=== PATIENT | male | born 2000 | race African-American/Black ===

== ENCOUNTER 2023-03-10 16:11 | Emergency (ER) | payer OTHER, SELFPAY ==
--- NOTE | ~2023-03-10 | US_ITS ---
EXAMINATION: US SCROTUM CLINICAL INFORMATION: Right-sided pain history of left testicular torsion with left testicle removal. COMPARISON: None available. TECHNIQUE: A sonogram of the scrotum was performed assessing carpio-scale appearance and color Doppler flow. Spectral Doppler analysis of the arterial and venous flow were performed in the testes bilaterally. FINDINGS: RIGHT: Right testicle measures 4.9 x 2.2 x 3.6 cm, volume 19.6 mL. No testicular mass. Limited testicular microlithiasis. Spectral Doppler analysis of the arterial and venous flow is normal in the right testis. Right epididymal head is normal in size. No right hydrocele or varicocele is seen. Right epididymal Doppler flow is mildly increased in the epididymal body and tail however without associated edema, equivocal for epididymitis, recommend correlation with clinical symptoms. LEFT: Left testicle is surgically absent. US/US scrotum IMPRESSION: * Right epididymal Doppler flow is mildly increased in the epididymal body and tail however without associated edema, equivocal for epididymitis, recommend correlation with clinical symptoms. No evidence of right testicular torsion. * Left testicle is surgically absent. * Limited right microlithiasis is present without intratesticular mass or other worrisome findings. In the absence of any other risk factors for testicular cancer (e.g., personal history of testicular cancer, a father or brother with testicular cancer, history of cryptorchidism or maldescent, testicular atrophy, or other risk factors), no further imaging or biochemical follow-up is necessary; all that is recommended is routine monthly testicular self-examination. However, if the patient has risk factors for testicular cancer, referral to a urologist for evaluation and determination of an optimal follow-up strategy is recommended. Reference: lauren Garnica. al. AJR: 206, March 2016.
--- NOTE | ~2023-03-10 | US_ITS ---
EXAMINATION: US SCROTUM CLINICAL INFORMATION: Right-sided pain history of left testicular torsion with left testicle removal. COMPARISON: None available. TECHNIQUE: A sonogram of the scrotum was performed assessing carpio-scale appearance and color Doppler flow. Spectral Doppler analysis of the arterial and venous flow were performed in the testes bilaterally. FINDINGS: RIGHT: Right testicle measures 4.9 x 2.2 x 3.6 cm, volume 19.6 mL. No testicular mass. Limited testicular microlithiasis. Spectral Doppler analysis of the arterial and venous flow is normal in the right testis. Right epididymal head is normal in size. No right hydrocele or varicocele is seen. Right epididymal Doppler flow is mildly increased in the epididymal body and tail however without associated edema, equivocal for epididymitis, recommend correlation with clinical symptoms. LEFT: Left testicle is surgically absent. US/US scrotum doppler IMPRESSION: * Right epididymal Doppler flow is mildly increased in the epididymal body and tail however without associated edema, equivocal for epididymitis, recommend correlation with clinical symptoms. No evidence of right testicular torsion. * Left testicle is surgically absent. * Limited right microlithiasis is present without intratesticular mass or other worrisome findings. In the absence of any other risk factors for testicular cancer (e.g., personal history of testicular cancer, a father or brother with testicular cancer, history of cryptorchidism or maldescent, testicular atrophy, or other risk factors), no further imaging or biochemical follow-up is necessary; all that is recommended is routine monthly testicular self-examination. However, if the patient has risk factors for testicular cancer, referral to a urologist for evaluation and determination of an optimal follow-up strategy is recommended. Reference: lauren Garnica. al. AJR: 206, March 2016.
[2023-03-10 16:29] VITALS: BP 140/70; PULSE 58; RESP 16; TEMP 36.2; O2SAT 100; BMI 27.0
--- NOTE | 2023-03-10 16:29 | ED_ITS ---
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 He describe it as a dull ache in his remaining testicle along with some suprapubic discomfort and sensation of motion sickness. He denied any urinary symptoms such as urinary frequency, urgency, hematuria, difficulty emptying his bladder. No nausea, vomiting, other abdominal pain. He denies any chance of STI, no urethral discharge. He states his testicular pain has completely resolved. MD complaint: testicular pain Onset (ago): hour(s) (7) Location: genitals Radiation: non-radiation Severity: moderate Severity scale (1-10): 7 Quality: aching Pain Consistency: now resolved Relieving factors: none Exacerbating factors: none Associated symptoms: denies other symptoms Treatments prior to arrival: none Related Data Previous Rx's Medication Instructions Recorded doxycycline hyclate 100 mg tablet 100 mg PO BID #14 tabs 03/10/23 Allergies Allergy/AdvReac Type Severity Reaction Status Date / Time No Known Allergies Allergy Verified 03/10/23 16:28 Review of Systems Review of Systems: Yes all other systems are reviewed and are negative [facility] Social History Social History Advance Directives: No Advance Directives Information Provided: No Physical Exam ED Vital Signs: Vital Signs - 24 hr 03/10/23 16:29 Temperature 97.1 F Pulse Rate 58 Respiratory Rate 16 Blood Pressure 140/70 H Pulse Oximetry 100 Oxygen Delivery Method Room Air BMI result Body Mass Index 27.0 VSS Appearance: Alert. Oriented X3. No acute distress. HEENT: normal inspection CVS: Normal heart rate and rhythm. Pulses normal. Respiratory: No respiratory distress. Skin: Skin warm and dry. Normal skin color. Normal skin turgor. No rashes. ABD: Soft, nontender, nondistended, normoactive bowel sounds x4 : Normal inspection the circumcised penis, no urethral discharge, single testicle with epididymal tenderness no noted swelling, no skin changes no genital lesions Extremities: Normal inspection x4 Neuro: Oriented X 3. grossly normal, nonfocal Course Course Course Narrative: RME performed by Deonna Hastings PA-C. Patient is a 22 year old assigned male at presenting to the emergency department with right sided testicular pain. Patient has a history of a torsion on the left side previously. Imaging ordered. Patient placed back in the waiting room pending room availability and results. Medications Administered Discontinued Medications Generic Name Dose Route Start Last Admin Trade Name Mariah PRN Reason Stop Dose Admin Ceftriaxone Sodium 500 mg/ 0 mg 03/10/23 18:41 03/10/23 18:49 Lidocaine HCl 1 ml IM 03/10/23 18:42 1 kit ONCE ONE Administration Doxycycline Monohydrate 100 mg 03/10/23 18:41 03/10/23 18:49 Doxycycline Monohydrate 100 Mg Capsule PO 03/10/23 18:42 100 mg ONCE ONE Administration Medical Decision Making Medical Decision Making MDM Narrative: 22-year-old male with history of left-sided testicular torsion status post testicular removal as a child presents to the ER for evaluation of right-sided testicular pain that started at noon today and has since resolved. No urinary symptoms. Ultrasound reviewed, appears he has epididymitis. He is denying any STI symptoms or concerns. Given his age will empirically treat. CT/ NG sample was sent. Urinalysis still pending. Differential Diagnosis Differential Diagnoses: The differential diagnosis associated with the presentation includes epididymitis, STI, orchitis, unlikely testicular torsion Independent Interpretation I performed an independent interpretation of an: Ultrasound Interpretation: visible flow to the right testicle, agrees radiologist read Radiology Impression Discussion of test interpretation with radiology: I have reviewed the radiologist's reading. Radiologist Impression: ?US/US scrotum doppler IMPRESSION: *? Right epididymal Doppler flow is mildly increased in the epididymal body and tail however without associated edema, equivocal for epididymitis, recommend correlation with clinical symptoms. No evidence of right testicular torsion. *? Left testicle is surgically absent. *? Limited right microlithiasis is present without intratesticular mass or other worrisome findings. In the absence of any other risk factors for testicular cancer (e.g., personal history of testicular cancer, a father or brother with testicular cancer, history of cryptorchidism or maldescent, testicular atrophy, or other risk factors), no further imaging or biochemical follow-up is necessary; all that is recommended is routine monthly testicular self-examination. However, if the patient has risk factors for testicular cancer, referral to a urologist for evaluation and determination of an optimal follow-up strategy is recommended. Prescription Management I considered prescription management with: Antibiotic Discharge Plan Discharge Clinical Impression: Acute epididymitis Patient Disposition: Home, Self-Care Instructions: Epididymitis (ED) Additional Instructions: Take the prescribed antibiotic as directed. Next dose is due tomorrow morning. Complete the entire course. If you tested positive for chlamydia or gonorrhea we will call you and inform you. You were empirically treated for both of these. You may have some ongoing aching in the testicle, this is usually improves with anti-inflammatory such as Aleve, ibuprofen. Recommend following up with your doctor. If you develop new or worsening symptoms call 911 or come back to the ER for further evaluation. Prescriptions: New doxycycline hyclate 100 mg tablet 100 mg PO BID Qty: 14 0RF Referrals: [facility] [Provider Group] (Epididymitis, history of torsion status post left testicular removal as a child)
[2023-03-10] MEDS: Doxycycline Monohydrate 100 MG CAPSULE PO (18:49)
[2023-03-10] MEDS: cefTRIAXone sodium 500 MG, Lidocaine HCl 1 % MPF 1 ML IM (18:49)
--- NOTE | 2023-03-10 18:55 | PC.NURSE ---
pt medicated per DEC - rocephin IM given in left deltoid
[2023-03-10 19:44] LABS: Appearance Urine Clear; Color Urine Yellow; Glucose Urine UA Negative (Negative); Leukocyte Esterase Urine Negative (Negative); Nitrite Urine Negative (Negative); Specific Gravity - Urine <= 1.005 (1.005-1.025); Urine Blood Negative (Negative); Urine Ketones Negative (Negative); Urine Protein Negative (Neg-Trace)
[2023-03-10 20:07] VITALS: BP 131/73; PULSE 64; RESP 18; O2SAT 100
[2023-03-11 09:35] LABS: CT PCR DETECTED (Not Detect.); NG PCR NOT DETECTED (Not Detect.)
== END 2023-03-10 20:15 | disposition home or self-care (01) ==
PROVIDERS: Physician Assistant Medical; Emergency Provider Emergency Medicine
DX: A56.19 Other chlamydial genitourinary infection (principal)
CPT/HCPCS: 0353U; 76870; 81003; 93975; 96372; 99284; J0696